=== PATIENT | male | born 1960 | race Caucasian/White ===

== ENCOUNTER 2017-09-17 05:14 | Inpatient (IN) | payer OTHER ==
[~2017-09-17] VITALS: Ht 177.8 cm; Wt 109.7 kg
[2017-09-17] VITALS (14 sets, daily range): BP systolic 101–132; BP diastolic 62–86
[~2017-09-17 05:14] MED LIST: ACTOS30 MG PO; ADVIL,NUPRIN,M200 MG PO; ADVIL200 MG PO; AMBIEN CR12.5 MG PO; ASCORBIC ACID100 MG PO; ASPIR-LOW81 MG PO; CEFDINIR300 MG PO; CEFTIN250 MG PO; CENTRUM ULTRA1 EACH PO; EXALGO16 MG PO; FOLTX TABLET1 EAC1 PO; GABAPENTIN400 MG PO; GLUCOPHAGE1000 MG PO; HUMALOG100 UNIT/1 SC; IBUPROFEN800 MG PO; LANTUS 10100 UNITS/ SC; LEVAQUIN750 MG PO; LIPITOR10 MG PO; LIPITOR40 MG PO; LISINOPRIL-HCT1 EAC3 PO; LOPID600 MG PO; METOPROLOL TART50 MG PO; NEURONTIN800 MG PO; ONE DAILY TABL1 EAC1 PO; OSTEO BI-FLEX1 EAC1 PO; PERCOCET 10/1 TABLET PO; PLAVIX75 MG PO; PREDNISONE10 MG PO; PRILOSEC20 MG PO; PROAIR HFA8.5 GM IH; PROTONIX40 MG PO; PROVENTIL HFA6.7 GM IH; PROZAC20 MG PO; PROZAC40 MG PO; ROBITUSSIN AC,T10 ML PO; TOPAMAX100 MG PO; TOPROL XL50 MG PO; ZOLPIDEM TART12.5 MG PO
[2017-09-17 06:21] LABS: HEMATOCRIT 32.9 % (38.0-50.0); HEMOGLOBIN 11.6 G/DL (12.5-16.6); MCH 32.1 PG (29.0-34.0); MCHC 35.3 G/DL (30.0-36.0); MCV 91.1 FL (86-99); PLATELET COUNT 131 K/uL (156-360); RBC DIS.WIDTH-SD 43.1 % (39-53); RED BLOOD COUNT 3.61 M/uL (4.00-5.50); WHITE BLOOD COUNT 10.1 K/uL (4.1-10.2)
[2017-09-17 06:32] LABS: CHLORIDE 97 mEq/L (99-109); POTASSIUM 4.9 mEq/L (3.7-5.4); SODIUM 131 mEq/L (136-147)
[2017-09-17 06:34] LABS: GLUCOSE 101 mg/dL (70-99)
[2017-09-17 06:38] LABS: CREATININE 2.1 mg/dL (0.6-1.3); GFR ESTIMATE (CALCULATED) 35 mL/min/ (58.99-99999); UREA NITROGEN (BUN) 26 mg/dL (9-23)
[2017-09-17 07:49] LABS: TROP-I INTERPRETATION NEGATIVE; TROPONIN-I 0.01 ng/mL (0.0-0.30)
[2017-09-17 08:01] LABS: BASE EXCESS -8.4 mEq/L (-3 to +3); BICARBONATE 17.9 mEq/L (22-26); CARBOXY HGB 2.2 % (0-5); METHEMOGLOBIN 0.2 % (0-1.5)
[2017-09-17 08:02] LABS: COMMENTS - BLOOD GASES +C; DEVICE HHFNC; O2 FLOW 15 L/MIN; PCO2 39 mm Hg (35-45); PO2 62 mm Hg (80-100); SITE LR +A; TOTAL RESP RATE 18 resp/min
[2017-09-17 08:03] LABS: pH 7.27 (7.35-7.45)
[2017-09-17] MEDS ORDERED: TIZANIDINE HCL4 MG PO (11:29)
[2017-09-17] MEDS ORDERED: VICTOZA0.6 MG/0.1 SC (11:29)
[2017-09-17] MEDS ORDERED: FENOFIBRATE160 M1 PO (11:30)
[2017-09-17] MEDS ORDERED: FISH OIL 1,0001 EAC7 PO (11:30)
[2017-09-17] MEDS ORDERED: VITAMIN B122500 MCG PO (11:30)
[2017-09-17] MEDS ORDERED: ALEVE220 M2 PO (11:31)
[2017-09-17] MEDS ORDERED: THERAGRAN1 TABLET PO (12:18)
[2017-09-17] MEDS ORDERED: CLARITIN10 M3 PO (12:18)
[2017-09-18] VITALS (22 sets, daily range): BP systolic 83–185; BP diastolic 46–142
[2017-09-18 00:58] LABS: APPEARANCE CLEAR ((CLEAR)); BILIRUBIN NEGATIVE; BLOOD NEGATIVE; COLOR YELLOW ((YELLOW)); GLUCOSE (STRIP) NEGATIVE; KETONES NEGATIVE; LEUKOCYTES NEGATIVE; NITRITE NEGATIVE; PROTEIN (STRIP) NEGATIVE; SPECIFIC GRAVITY 1.006 (1.000-1.030); UCUL ADDED? NO; UROBILINOGEN 0.2 MG/DL (0.2-1.0)
[2017-09-18 06:07] LABS: BASOPHIL (%) 0.6 % (0-1); BASOPHIL COUNT 0.1 K/uL (0-0.1); EOSINOPHIL (%) 1.4 % (0-5); EOSINOPHIL COUNT 0.1 K/uL (0-0.3); HEMATOCRIT 31.6 % (38.0-50.0); HEMOGLOBIN 10.7 G/DL (12.5-16.6); IMMATURE GRANULOCYTE (%) 3.5 % (0.0-0.7); LYMPHOCYTE (%) 6.6 % (15-42); LYMPHOCYTE COUNT 0.6 K/uL (1.0-2.8); MCH 31.7 PG (29.0-34.0); MCHC 33.9 G/DL (30.0-36.0); MCV 93.5 FL (86-99); MONOCYTE (%) 9.1 % (3-12); MONOCYTE COUNT 0.8 K/uL (0-0.8); NEUTROPHIL (%) 78.8 % (45-76); NEUTROPHIL COUNT 6.6 K/uL (1.8-6.4); PLATELET COUNT 168 K/uL (156-360); RBC DIS.WIDTH-CV 13.2 % (11.8-14.6); RBC DIS.WIDTH-SD 45.1 % (39-53); RED BLOOD COUNT 3.38 M/uL (4.00-5.50); WHITE BLOOD COUNT 8.4 K/uL (4.1-10.2)
[2017-09-18 06:42] LABS: CHLORIDE 110 MEQ/L (99-109); GFR ESTIMATE (CALCULATED) 56 mL/min/ (58.99-99999); POTASSIUM 4.3 MEQ/L (3.7-5.4); SODIUM 137 MEQ/L (136-147); UREA NITROGEN (BUN) 19 mg/dL (9-23)
[2017-09-18 06:43] LABS: CREATININE 1.4 MG/DL (0.6-1.3); GLUCOSE 204 mg/dL (70-99)
[2017-09-18 12:55] LABS: BASE EXCESS -7.6 mEq/L (-3 to +3); BICARBONATE 17.4 mEq/L (22-26); CARBOXY HGB 0.7 % (0-5); COMMENTS - BLOOD GASES A+C+; DEVICE HHFNC; FI02 100 %; METHEMOGLOBIN 1.1 % (0-1.5); O2 FLOW 50 L/MIN; PCO2 33 mm Hg (35-45); PO2 59 mm Hg (80-100); SITE RR; TOTAL RESP RATE 23 resp/min; pH 7.33 (7.35-7.45)
[2017-09-19] VITALS (16 sets, daily range): BP systolic 87–131; BP diastolic 45–88
[2017-09-19 06:01] LABS: HEMATOCRIT 33.3 % (38.0-50.0); HEMOGLOBIN 11.2 G/DL (12.5-16.6); MCH 31.6 PG (29.0-34.0); MCHC 33.6 G/DL (30.0-36.0); MCV 94.1 FL (86-99); NRBC (%) 0.2 /100 WBC (0-0); PLATELET COUNT 191 K/uL (156-360); RBC DIS.WIDTH-CV 13.3 % (11.8-14.6); RBC DIS.WIDTH-SD 45.6 % (39-53); RED BLOOD COUNT 3.54 M/uL (4.00-5.50); WHITE BLOOD COUNT 9.7 K/uL (4.1-10.2)
[2017-09-19 06:26] LABS: CHLORIDE 106 MEQ/L (99-109); CREATININE 1.6 MG/DL (0.6-1.3); GFR ESTIMATE (CALCULATED) 48 mL/min/ (58.99-99999); GLUCOSE 108 mg/dL (70-99); POTASSIUM 3.8 MEQ/L (3.7-5.4); SODIUM 136 MEQ/L (136-147); UREA NITROGEN (BUN) 16 mg/dL (9-23)
[2017-09-19 06:31] LABS: ABS NEUTROPHIL COUNT 7.9; ANISOCYTOSIS 1+; BAND NEUTROPHILS 7.9 % (0-8.0); BASOPHILS 0.9 %; EOSINOPHIL ABS CT 0.3; EOSINOPHILS 2.6 % (0-5.0); MICROCYTOSIS 1+; MONOCYTES 5.3 % (0-9.0); MYELOCYTES 2.6 %; PLAT.SUFFICIENCY ADEQUATE; POLYCHROMASIA 1+; SEG.NEUTROPHILS 73.7 % (46.0-76.0)
[2017-09-19 09:22] LABS: BASE EXCESS -9.7 mEq/L (-3 to +3); BICARBONATE 16.6 mEq/L (22-26); CARBOXY HGB 0.1 % (0-5); COMMENTS - BLOOD GASES C+; DEVICE VENTILATOR; FI02 100 %; INSPIRATION TIME 1.2 seconds; MECHANICAL RATE 24 resp/min; METHEMOGLOBIN 0.9 % (0-1.5); MODE AC+; PCO2 37 mm Hg (35-45); PO2 127 mm Hg (80-100); SITE A LINE; TOTAL RESP RATE 27 resp/min; pH 7.26 (7.35-7.45)
[2017-09-19 09:23] LABS: PEEP 12 CM/H20; TIDAL VOLUME 600 ML
[2017-09-19 13:03] LABS: ALKALINE PHOSPHATASE 66 IU/L (3-129); ALT (GPT) 32 IU/L (3-49); DIRECT BILIRUBIN 0.6 mg/dL (0.0-0.3); MAGNESIUM 1.7 mg/dl (1.3-2.7); PHOSPHORUS 2.9 mg/dL (2.5-4.9); TRIGLYCERIDES 278 MG/DL (Normal: <150)
[2017-09-19 13:07] LABS: AST (GOT) 42 IU/L (2-34); TOTAL BILIRUBIN 1.1 MG/DL (0.0-1.0); TOTAL PROTEIN 5.5 G/DL (6.4-8.3)
[2017-09-20 05:41] LABS: HEMATOCRIT 27.3 % (38.0-50.0); MCH 30.9 PG (29.0-34.0); MCV 93.8 FL (86-99); PLATELET COUNT 186 K/uL (156-360); RBC DIS.WIDTH-CV 13.5 % (11.8-14.6); RBC DIS.WIDTH-SD 45.9 % (39-53); RED BLOOD COUNT 2.91 M/uL (4.00-5.50); WHITE BLOOD COUNT 8.9 K/uL (4.1-10.2)
[2017-09-20 06:14] LABS: ALBUMIN 2.7 G/DL (3.2-4.8); ALKALINE PHOSPHATASE 60 IU/L (3-129); ALT (GPT) 34 IU/L (3-49); AST (GOT) 37 IU/L (2-34); CHLORIDE 108 MEQ/L (99-109); CREATININE 1.5 MG/DL (0.6-1.3); GFR ESTIMATE (CALCULATED) 52 mL/min/ (58.99-99999); GLUCOSE 149 mg/dL (70-99); POTASSIUM 3.6 MEQ/L (3.7-5.4); SODIUM 135 MEQ/L (136-147); TOTAL PROTEIN 5.7 G/DL (6.4-8.3); UREA NITROGEN (BUN) 27 mg/dL (9-23)
[2017-09-20 06:20] LABS: ABS NEUTROPHIL COUNT 7.7; ANISOCYTOSIS 1+; BAND NEUTROPHILS 0.9 % (0-8.0); BASOPHILS 2.7 %; EOSINOPHIL ABS CT 0.1; EOSINOPHILS 0.9 % (0-5.0); LYMPHOCYTES 1.8 % (15.0-45.0); MICROCYTOSIS 1+; MONOCYTES 8.1 % (0-9.0); PLAT.SUFFICIENCY ADEQUATE; SEG.NEUTROPHILS 85.6 % (46.0-76.0)
[2017-09-20 07:00] VITALS: BP 108/66
[2017-09-20 08:00] VITALS: BP 127/107
[2017-09-20 20:56] LABS: BASE EXCESS -7.4 mEq/L (-3 to +3); BICARBONATE 19.3 mEq/L (22-26); CARBOXY HGB 0.6 % (0-5)
[2017-09-20 20:57] LABS: COMMENTS - BLOOD GASES C+; DEVICE VENT; FI02 100 %; MECHANICAL RATE 24 resp/min; MODE ACVC+; PCO2 43 mm Hg (35-45); PO2 445 mm Hg (80-100); SITE ALINE; TOTAL RESP RATE 24 resp/min; pH 7.26 (7.35-7.45)
[2017-09-20 20:58] LABS: INSPIRATION TIME 0.9 seconds; PEEP 18 CM/H20; TIDAL VOLUME 600 ML
[2017-09-21] VITALS (7 sets, daily range): BP systolic 72–125; BP diastolic 41–66
[2017-09-21 06:37] LABS: CHLORIDE 108 MEQ/L (99-109); CREATININE 1.8 MG/DL (0.6-1.3); GFR ESTIMATE (CALCULATED) 42 mL/min/ (58.99-99999); POTASSIUM 3.8 MEQ/L (3.7-5.4); SODIUM 137 MEQ/L (136-147)
[2017-09-21 06:39] LABS: GLUCOSE 106 mg/dL (70-99); MAGNESIUM 2.2 mg/dl (1.3-2.7); UREA NITROGEN (BUN) 44 mg/dL (9-23)
[2017-09-21 07:03] LABS: HEMATOCRIT 27.4 % (38.0-50.0); HEMOGLOBIN 8.9 G/DL (12.5-16.6); MCH 30.8 PG (29.0-34.0); MCHC 32.5 G/DL (30.0-36.0); MCV 94.8 FL (86-99); PLATELET COUNT 193 K/uL (156-360); RBC DIS.WIDTH-CV 13.6 % (11.8-14.6); RBC DIS.WIDTH-SD 47.6 % (39-53); RED BLOOD COUNT 2.89 M/uL (4.00-5.50); WHITE BLOOD COUNT 10.6 K/uL (4.1-10.2)
[2017-09-21 08:46] LABS: BASE EXCESS -6.8 mEq/L (-3 to +3); BICARBONATE 19.7 mEq/L (22-26); CARBOXY HGB 0.3 % (0-5); COMMENTS - BLOOD GASES C+ANA; METHEMOGLOBIN 1.2 % (0-1.5); PCO2 43 mm Hg (35-45); PO2 77 mm Hg (80-100); SITE ALINE; pH 7.27 (7.35-7.45)
[2017-09-21 08:47] LABS: DEVICE 840 PB; FI02 85 %; INSPIRATION TIME 0.8 seconds; MECHANICAL RATE 24 resp/min; MODE ACVC+; PEEP 15 CM/H20; TIDAL VOLUME 600 ML; TOTAL RESP RATE 29 resp/min
[2017-09-22] VITALS (9 sets, daily range): BP systolic 108–174; BP diastolic 62–92
[2017-09-22 05:44] LABS: HEMATOCRIT 27.9 % (38.0-50.0); HEMOGLOBIN 8.9 G/DL (12.5-16.6); MCHC 31.9 G/DL (30.0-36.0); MCV 97.2 FL (86-99); PLATELET COUNT 205 K/uL (156-360); RBC DIS.WIDTH-CV 13.9 % (11.8-14.6); RED BLOOD COUNT 2.87 M/uL (4.00-5.50)
[2017-09-22 05:57] LABS: BASE EXCESS -8.1 mEq/L (-3 to +3); BICARBONATE 19.2 mEq/L (22-26); CARBOXY HGB 0.3 % (0-5); METHEMOGLOBIN 1.1 % (0-1.5); PCO2 47 mm Hg (35-45); PO2 90 mm Hg (80-100); SITE LR ALINE; pH 7.22 (7.35-7.45)
[2017-09-22 05:58] LABS: COMMENTS - BLOOD GASES C; DEVICE VENT; FI02 50 %; INSPIRATION TIME 0.75 seconds; MECHANICAL RATE 24 resp/min; MODE BILEVEL; PRES. SUPPORT 12 CM/H2O; PRESSURE CONTROL VENTILATION 31 CM H20; TOTAL RESP RATE 34 resp/min
[2017-09-22 05:59] LABS: PEEP 16 CM/H20
[2017-09-22 06:28] LABS: BASE EXCESS -9.2 mEq/L (-3 to +3); BICARBONATE 18.4 mEq/L (22-26); CARBOXY HGB 0.2 % (0-5); METHEMOGLOBIN 1.1 % (0-1.5); PCO2 47 mm Hg (35-45); PO2 106 mm Hg (80-100)
[2017-09-22 06:29] LABS: CHLORIDE 108 MEQ/L (99-109); CREATININE 2.3 MG/DL (0.6-1.3); GFR ESTIMATE (CALCULATED) 32 mL/min/ (58.99-99999); GLUCOSE 147 mg/dL (70-99); POTASSIUM 4.1 MEQ/L (3.7-5.4); SODIUM 138 MEQ/L (136-147); UREA NITROGEN (BUN) 67 mg/dL (9-23)
[2017-09-22 06:29] LABS: COMMENTS - BLOOD GASES C+; DEVICE VENT; FI02 50 %; INSPIRATION TIME 0.8 seconds; MECHANICAL RATE 24 resp/min; MODE AC+; PEEP 16 CM/H20; SITE LR ALINE; TIDAL VOLUME 600 ML; TOTAL RESP RATE 24 resp/min
[2017-09-22 13:21] LABS: UR CREATININE CONCENTRATION 95.9 MG/DL
[2017-09-22 18:44] LABS: CHLORIDE 106 MEQ/L (99-109); CREATININE 1.9 MG/DL (0.6-1.3); GFR ESTIMATE (CALCULATED) 39 mL/min/ (58.99-99999); GLUCOSE 303 mg/dL (70-99); IRON 28 MCG/DL (35-150); POTASSIUM 3.5 MEQ/L (3.7-5.4); SODIUM 137 MEQ/L (136-147); TRANSFERRIN SATUR. 18 % (20-55); UREA NITROGEN (BUN) 62 mg/dL (9-23)
[2017-09-22 21:31] LABS: APPEARANCE SL.HAZY ((CLEAR)); BILIRUBIN NEGATIVE; BLOOD SMALL; COLOR YELLOW ((YELLOW)); GLUCOSE (STRIP) 50; KETONES NEGATIVE; LEUKOCYTES NEGATIVE; NITRITE NEGATIVE; PROTEIN (STRIP) NEGATIVE; SPECIFIC GRAVITY 1.016 (1.000-1.030)
[2017-09-22 21:36] LABS: BACTERIA NONE SEEN /HPF; EPITHELIAL CELLS RARE /HPF; MUCUS TRACE /LPF; RED BLOOD CELLS 20-30 /HPF (0-5); WHITE BLOOD CELLS 0-5 /HPF (0-5)
[2017-09-22 22:40] LABS: EOSINOPHILS,URINE NONE SEEN
[2017-09-23] VITALS (17 sets, daily range): BP systolic 122–166; BP diastolic 46–89
[2017-09-23 07:46] LABS: ALBUMIN 2.4 G/DL (3.2-4.8); CHLORIDE 109 MEQ/L (99-109); CREATININE 1.7 MG/DL (0.6-1.3); GFR ESTIMATE (CALCULATED) 45 mL/min/ (58.99-99999); GLUCOSE 359 mg/dL (70-99); PHOSPHORUS 2.9 mg/dL (2.5-4.9); POTASSIUM 3.4 MEQ/L (3.7-5.4); SODIUM 142 MEQ/L (136-147); UREA NITROGEN (BUN) 65 mg/dL (9-23)
[2017-09-23 07:47] LABS: MAGNESIUM 2.6 mg/dl (1.3-2.7)
[2017-09-23 08:00] LABS: BASE EXCESS -1.5 mEq/L (-3 to +3); BICARBONATE 23.7 mEq/L (22-26); CARBOXY HGB 0.1 % (0-5); COMMENTS - BLOOD GASES A+; METHEMOGLOBIN 0.8 % (0-1.5); PCO2 41 mm Hg (35-45); PO2 150 mm Hg (80-100); SITE ALINE; pH 7.37 (7.35-7.45)
[2017-09-23 08:00] LABS: HEMATOCRIT 27.8 % (38.0-50.0); HEMOGLOBIN 9.2 G/DL (12.5-16.6); MCH 31.7 PG (29.0-34.0); MCHC 33.1 G/DL (30.0-36.0); MCV 95.9 FL (86-99); PLATELET COUNT 211 K/uL (156-360); RBC DIS.WIDTH-CV 13.9 % (11.8-14.6); RBC DIS.WIDTH-SD 49.3 % (39-53); WHITE BLOOD COUNT 8.2 K/uL (4.1-10.2)
[2017-09-23 08:01] LABS: DEVICE 840VENT; FI02 40 %; INSPIRATION TIME 0.8 seconds; MECHANICAL RATE 24 resp/min; MODE BILEVEL; PEEP 16 CM/H20; PRES. SUPPORT 12 CM/H2O; PRESSURE CONTROL VENTILATION 34 CM H20; TOTAL RESP RATE 24 resp/min
[2017-09-23 08:27] LABS: ABS NEUTROPHIL COUNT 7.1; ANISOCYTOSIS 1+; BAND NEUTROPHILS 3.7 % (0-8.0); EOSINOPHIL ABS CT 0.2; EOSINOPHILS 2.7 % (0-5.0); LYMPHOCYTES 0.9 % (15.0-45.0); MACROCYTES 1+; METAMYELOCYTES 1.8 %; MONOCYTES 5.5 % (0-9.0); MYELOCYTES 2.7 %; PLAT.SUFFICIENCY ADEQUATE; SEG.NEUTROPHILS 82.7 % (46.0-76.0)
[2017-09-24 05:50] LABS: HEMATOCRIT 27.8 % (38.0-50.0); HEMOGLOBIN 9.2 G/DL (12.5-16.6); MCH 31.8 PG (29.0-34.0); MCHC 33.1 G/DL (30.0-36.0); MCV 96.2 FL (86-99); PLATELET COUNT 220 K/uL (156-360); RBC DIS.WIDTH-SD 49.9 % (39-53); RED BLOOD COUNT 2.89 M/uL (4.00-5.50); WHITE BLOOD COUNT 8.1 K/uL (4.1-10.2)
[2017-09-24 06:18] LABS: ALBUMIN 2.6 G/DL (3.2-4.8); CHLORIDE 118 MEQ/L (99-109); CREATININE 1.7 MG/DL (0.6-1.3); GFR ESTIMATE (CALCULATED) 45 mL/min/ (58.99-99999); GLUCOSE 300 mg/dL (70-99); MAGNESIUM 2.5 mg/dl (1.3-2.7); PHOSPHORUS 2.1 mg/dL (2.5-4.9); POTASSIUM 4.1 MEQ/L (3.7-5.4); SODIUM 149 MEQ/L (136-147); UREA NITROGEN (BUN) 62 mg/dL (9-23)
[2017-09-24 06:22] LABS: ABS NEUTROPHIL COUNT 6.7; ATYPICAL LYMPHOCYTE 0.9 %; BASOPHILS 0.9 %; EOSINOPHIL ABS CT 0.1; EOSINOPHILS 0.9 % (0-5.0); LYMPHOCYTES 5.5 % (15.0-45.0); MONOCYTES 5.5 % (0-9.0); MYELOCYTES 3.6 %; PLAT.SUFFICIENCY ADEQUATE; SEG.NEUTROPHILS 82.7 % (46.0-76.0)
[2017-09-24 16:00] VITALS: BP 147/72
[2017-09-24 16:52] LABS: BASE EXCESS -0.7 mEq/L (-3 to +3); BICARBONATE 23.2 mEq/L (22-26); CARBOXY HGB 0.3 % (0-5); METHEMOGLOBIN 0.8 % (0-1.5); pH 7.43 (7.35-7.45)
[2017-09-24 16:53] LABS: COMMENTS - BLOOD GASES C+; DEVICE 980; FI02 40 %; MECHANICAL RATE 24 resp/min; MODE BILEVEL; PCO2 35 mm Hg (35-45); PO2 83 mm Hg (80-100); PRES. SUPPORT 15 CM/H2O; SITE LEFTALINE
[2017-09-25] VITALS (13 sets, daily range): BP systolic 121–210; BP diastolic 74–137
[2017-09-25 05:35] LABS: ALBUMIN 2.8 g/dL (3.2-4.8); CHLORIDE 117 mEq/L (99-109); POTASSIUM 4.6 mEq/L (3.7-5.4); SODIUM 145 mEq/L (136-147)
[2017-09-25 05:36] LABS: MAGNESIUM 2.2 mg/dL (1.3-2.7)
[2017-09-25 05:38] LABS: GLUCOSE 330 mg/dL (70-99)
[2017-09-25 05:41] LABS: CREATININE 1.7 mg/dL (0.6-1.3); GFR ESTIMATE (CALCULATED) 45 mL/min/ (58.99-99999); PHOSPHORUS 3.3 mg/dL (2.5-4.9)
[2017-09-25 05:42] LABS: UREA NITROGEN (BUN) 61 mg/dL (9-23)
[2017-09-25 05:58] LABS: HEMATOCRIT 30.1 % (38.0-50.0); HEMOGLOBIN 9.6 G/DL (12.5-16.6); MCH 31.5 PG (29.0-34.0); MCHC 31.9 G/DL (30.0-36.0); MCV 98.7 FL (86-99); PLATELET COUNT 242 K/uL (156-360); RBC DIS.WIDTH-CV 14.2 % (11.8-14.6); RBC DIS.WIDTH-SD 51.6 % (39-53); RED BLOOD COUNT 3.05 M/uL (4.00-5.50); WHITE BLOOD COUNT 8.9 K/uL (4.1-10.2)
[2017-09-25 06:40] LABS: TRIGLYCERIDES 608 MG/DL (Normal: <150)
[2017-09-25 06:59] LABS: ANISOCYTOSIS 1+; BAND NEUTROPHILS 2.8 % (0-8.0); EOSINOPHIL ABS CT 0.2; EOSINOPHILS 2.8 % (0-5.0); LYMPHOCYTES 3.8 % (15.0-45.0); MACROCYTES 1+; METAMYELOCYTES 3.8 %; MICROCYTOSIS 1+; MONOCYTES 4.7 % (0-9.0); MYELOCYTES 5.7 %; PLAT.SUFFICIENCY ADEQUATE; POLYCHROMASIA 1+; SEG.NEUTROPHILS 76.4 % (46.0-76.0)
[2017-09-25 07:14] LABS: APPEARANCE CLEAR ((CLEAR)); BILIRUBIN NEGATIVE; BLOOD NEGATIVE; COLOR YELLOW ((YELLOW)); GLUCOSE (STRIP) 50; KETONES NEGATIVE; LEUKOCYTES NEGATIVE; NITRITE NEGATIVE; PROTEIN (STRIP) NEGATIVE; SPECIFIC GRAVITY 1.025 (1.000-1.030); UROBILINOGEN 0.2 MG/DL (0.2-1.0)
[2017-09-25 12:29] LABS: BASE EXCESS 0.1 mEq/L (-3 to +3); BICARBONATE 24.7 mEq/L (22-26); CARBOXY HGB 0 % (0-5); METHEMOGLOBIN 1.1 % (0-1.5); PCO2 39 mm Hg (35-45); PO2 122 mm Hg (80-100); pH 7.41 (7.35-7.45)
[2017-09-25 12:30] LABS: DEVICE 840 PB; FI02 60 %; INSPIRATION TIME 0.8 seconds; MECHANICAL RATE 24 resp/min; MODE AC VC+; PEEP 10 CM/H20; SITE A-LINE; TIDAL VOLUME 600 ML; TOTAL RESP RATE 25 resp/min
[2017-09-26] VITALS (17 sets, daily range): BP systolic 115–183; BP diastolic 65–111
[2017-09-26 06:41] LABS: CHLORIDE 116 MEQ/L (99-109); CREATININE 1.4 MG/DL (0.6-1.3); GFR ESTIMATE (CALCULATED) 56 mL/min/ (58.99-99999); GLUCOSE 296 mg/dL (70-99); POTASSIUM 4.4 MEQ/L (3.7-5.4); SODIUM 147 MEQ/L (136-147); UREA NITROGEN (BUN) 54 mg/dL (9-23)
[2017-09-27] VITALS (24 sets, daily range): BP systolic 0–191; BP diastolic 0–117
[2017-09-27 05:19] LABS: CHLORIDE 122 mEq/L (99-109); SODIUM 149 mEq/L (136-147)
[2017-09-27 05:24] LABS: CREATININE 1.2 mg/dL (0.6-1.3); GFR ESTIMATE (CALCULATED) > 59 mL/min/ (58.99-99999)
[2017-09-27 05:25] LABS: UREA NITROGEN (BUN) 46 mg/dL (9-23)
[2017-09-27 05:32] LABS: GLUCOSE 132 mg/dL (70-99); POTASSIUM 3.4 mEq/L (3.7-5.4)
[2017-09-27 12:22] LABS: C DIFF TOXIN NEGATIVE (NEGATIVE)
[2017-09-28] VITALS (24 sets, daily range): BP systolic 0–186; BP diastolic 0–109
[2017-09-28 05:46] LABS: BASOPHIL (%) 0.3 % (0-1); EOSINOPHIL (%) 0.8 % (0-5); EOSINOPHIL COUNT 0.1 K/uL (0-0.3); HEMATOCRIT 31.5 % (38.0-50.0); HEMOGLOBIN 10.1 G/DL (12.5-16.6); IMMATURE GRANULOCYTE (%) 1.9 % (0.0-0.7); LYMPHOCYTE (%) 9.2 % (15-42); MCH 31.2 PG (29.0-34.0); MCHC 32.1 G/DL (30.0-36.0); MCV 97.2 FL (86-99); MONOCYTE (%) 6.2 % (3-12); MONOCYTE COUNT 0.7 K/uL (0-0.8); NEUTROPHIL (%) 81.6 % (45-76); RBC DIS.WIDTH-CV 13.2 % (11.8-14.6); RBC DIS.WIDTH-SD 46.9 % (39-53); RED BLOOD COUNT 3.24 M/uL (4.00-5.50)
[2017-09-28 05:47] LABS: PLATELET COUNT 348 K/uL (156-360)
[2017-09-28 06:00] LABS: ALBUMIN 2.9 G/DL (3.2-4.8); ALKALINE PHOSPHATASE 49 IU/L (3-129); ALT (GPT) 55 IU/L (3-49); AST (GOT) 51 IU/L (2-34); CHLORIDE 118 MEQ/L (99-109); CREATININE 1.3 MG/DL (0.6-1.3); GFR ESTIMATE (CALCULATED) > 59 mL/min/ (58.99-99999); MAGNESIUM 2.5 mg/dl (1.3-2.7); PHOSPHORUS 2.5 mg/dL (2.5-4.9); POTASSIUM 3.9 MEQ/L (3.7-5.4); SODIUM 149 MEQ/L (136-147); TOTAL BILIRUBIN 0.7 MG/DL (0.0-1.0); TOTAL PROTEIN 5.7 G/DL (6.4-8.3); UREA NITROGEN (BUN) 46 mg/dL (9-23)
[2017-09-28 06:04] LABS: GLUCOSE 282 mg/dL (70-99)
[2017-09-28 09:27] LABS: BASE EXCESS -1.2 mEq/L (-3 to +3); CARBOXY HGB 0.5 % (0-5); COMMENTS - BLOOD GASES +C; DEVICE HHFNC; FI02 40 %; METHEMOGLOBIN 1.1 % (0-1.5); O2 FLOW 30 L/MIN; PCO2 31 mm Hg (35-45); PO2 63 mm Hg (80-100); SITE RR +A; TOTAL RESP RATE 38 resp/min; pH 7.46 (7.35-7.45)
[2017-09-29] VITALS (18 sets, daily range): BP systolic 106–165; BP diastolic 48–109
[2017-09-29 06:21] LABS: BASOPHIL (%) 0.5 % (0-1); EOSINOPHIL (%) 2.6 % (0-5); EOSINOPHIL COUNT 0.2 K/uL (0-0.3); HEMATOCRIT 29.4 % (38.0-50.0); HEMOGLOBIN 9.5 G/DL (12.5-16.6); IMMATURE GRANULOCYTE (%) 2.3 % (0.0-0.7); MCH 31.3 PG (29.0-34.0); MCHC 32.3 G/DL (30.0-36.0); MCV 96.7 FL (86-99); MONOCYTE (%) 6.9 % (3-12); MONOCYTE COUNT 0.4 K/uL (0-0.8); NEUTROPHIL (%) 71.7 % (45-76); NEUTROPHIL COUNT 4.4 K/uL (1.8-6.4); PLATELET COUNT 337 K/uL (156-360); RBC DIS.WIDTH-CV 13.1 % (11.8-14.6); RBC DIS.WIDTH-SD 46.2 % (39-53); RED BLOOD COUNT 3.04 M/uL (4.00-5.50); WHITE BLOOD COUNT 6.1 K/uL (4.1-10.2)
[2017-09-29 06:44] LABS: ALBUMIN 2.8 G/DL (3.2-4.8); ALKALINE PHOSPHATASE 45 IU/L (3-129); ALT (GPT) 47 IU/L (3-49); AST (GOT) 30 IU/L (2-34); CHLORIDE 122 MEQ/L (99-109); GFR ESTIMATE (CALCULATED) > 59 mL/min/ (58.99-99999); GLUCOSE 230 mg/dL (70-99); MAGNESIUM 2.6 mg/dl (1.3-2.7); PHOSPHORUS 3.2 mg/dL (2.5-4.9); POTASSIUM 3.8 MEQ/L (3.7-5.4); SODIUM 152 MEQ/L (136-147); TOTAL BILIRUBIN 0.6 MG/DL (0.0-1.0); TOTAL PROTEIN 5.8 G/DL (6.4-8.3); UREA NITROGEN (BUN) 38 mg/dL (9-23)
[2017-09-30 03:44] VITALS: BP 152/79
[2017-09-30 06:49] LABS: HEMATOCRIT 32.9 % (38.0-50.0); HEMOGLOBIN 10.3 G/DL (12.5-16.6); MCH 30.7 PG (29.0-34.0); MCHC 31.3 G/DL (30.0-36.0); MCV 97.9 FL (86-99); PLATELET COUNT 436 K/uL (156-360); RBC DIS.WIDTH-CV 13.2 % (11.8-14.6); RBC DIS.WIDTH-SD 47.1 % (39-53); RED BLOOD COUNT 3.36 M/uL (4.00-5.50); WHITE BLOOD COUNT 7.3 K/uL (4.1-10.2)
[2017-09-30 07:23] LABS: ALBUMIN 3.1 G/DL (3.2-4.8); ALKALINE PHOSPHATASE 58 IU/L (3-129); ALT (GPT) 80 IU/L (3-49); CHLORIDE 120 MEQ/L (99-109); CREATININE 1.1 MG/DL (0.6-1.3); GFR ESTIMATE (CALCULATED) > 59 mL/min/ (58.99-99999); GLUCOSE 165 mg/dL (70-99); POTASSIUM 3.3 MEQ/L (3.7-5.4); SODIUM 152 MEQ/L (136-147); TOTAL PROTEIN 5.8 G/DL (6.4-8.3); UREA NITROGEN (BUN) 27 mg/dL (9-23)
[2017-09-30 07:24] LABS: AST (GOT) 65 IU/L (2-34); TOTAL BILIRUBIN 0.8 MG/DL (0.0-1.0)
[2017-09-30 08:31] VITALS: BP 164/79
[2017-09-30 12:33] VITALS: BP 160/76
[2017-09-30 16:23] VITALS: BP 154/67
[2017-10-01 00:12] VITALS: BP 148/70
[2017-10-01 04:03] VITALS: BP 140/65
[2017-10-01 06:30] VITALS: BP 157/73
[2017-10-01 07:02] LABS: BASOPHIL (%) 0.3 % (0-1); EOSINOPHIL (%) 1.7 % (0-5); EOSINOPHIL COUNT 0.2 K/uL (0-0.3); HEMATOCRIT 29.3 % (38.0-50.0); HEMOGLOBIN 9.3 G/DL (12.5-16.6); IMMATURE GRANULOCYTE (%) 1.2 % (0.0-0.7); LYMPHOCYTE (%) 10.4 % (15-42); LYMPHOCYTE COUNT 1.2 K/uL (1.0-2.8); MCH 30.7 PG (29.0-34.0); MCHC 31.7 G/DL (30.0-36.0); MCV 96.7 FL (86-99); MONOCYTE (%) 5.6 % (3-12); MONOCYTE COUNT 0.7 K/uL (0-0.8); NEUTROPHIL (%) 80.8 % (45-76); NEUTROPHIL COUNT 9.4 K/uL (1.8-6.4); PLATELET COUNT 467 K/uL (156-360); RBC DIS.WIDTH-CV 13.3 % (11.8-14.6); RBC DIS.WIDTH-SD 46.7 % (39-53); RED BLOOD COUNT 3.03 M/uL (4.00-5.50); WHITE BLOOD COUNT 11.7 K/uL (4.1-10.2)
[2017-10-01 07:34] LABS: CHLORIDE 119 MEQ/L (99-109); GFR ESTIMATE (CALCULATED) > 59 mL/min/ (58.99-99999); GLUCOSE 137 mg/dL (70-99); POTASSIUM 3.5 MEQ/L (3.7-5.4); SODIUM 149 MEQ/L (136-147); UREA NITROGEN (BUN) 19 mg/dL (9-23)
[2017-10-01 15:53] VITALS: BP 151/89
[2017-10-01 19:53] VITALS: BP 148/78
[2017-10-02 00:40] VITALS: BP 178/87
[2017-10-02 04:28] VITALS: BP 157/82
[2017-10-02 05:34] LABS: BASOPHIL (%) 0.5 % (0-1); BASOPHIL COUNT 0.1 K/uL (0-0.1); EOSINOPHIL (%) 1.4 % (0-5); EOSINOPHIL COUNT 0.2 K/uL (0-0.3); HEMATOCRIT 30.6 % (38.0-50.0); HEMOGLOBIN 9.9 G/DL (12.5-16.6); IMMATURE GRANULOCYTE (%) 2.2 % (0.0-0.7); LYMPHOCYTE (%) 8.2 % (15-42); LYMPHOCYTE COUNT 1.2 K/uL (1.0-2.8); MCH 30.6 PG (29.0-34.0); MCHC 32.4 G/DL (30.0-36.0); MCV 94.4 FL (86-99); MONOCYTE COUNT 0.9 K/uL (0-0.8); NEUTROPHIL (%) 81.7 % (45-76); NEUTROPHIL COUNT 11.9 K/uL (1.8-6.4); PLATELET COUNT 538 K/uL (156-360); RBC DIS.WIDTH-CV 13.3 % (11.8-14.6); RBC DIS.WIDTH-SD 45.3 % (39-53); RED BLOOD COUNT 3.24 M/uL (4.00-5.50); WHITE BLOOD COUNT 14.6 K/uL (4.1-10.2)
[2017-10-02 05:55] LABS: ALBUMIN 3.1 G/DL (3.2-4.8); ALKALINE PHOSPHATASE 75 IU/L (3-129); ALT (GPT) 73 IU/L (3-49); AST (GOT) 43 IU/L (2-34); CHLORIDE 116 MEQ/L (99-109); CREATININE 0.9 MG/DL (0.6-1.3); GFR ESTIMATE (CALCULATED) > 59 mL/min/ (58.99-99999); GLUCOSE 182 mg/dL (70-99); POTASSIUM 3.3 MEQ/L (3.7-5.4); SODIUM 145 MEQ/L (136-147); TOTAL BILIRUBIN 0.7 MG/DL (0.0-1.0); TOTAL PROTEIN 5.8 G/DL (6.4-8.3); UREA NITROGEN (BUN) 18 mg/dL (9-23)
[2017-10-02 06:31] LABS: HEMATOCRIT 33.2 % (38.0-50.0); HEMOGLOBIN 11.2 G/DL (12.5-16.6); MCH 31.9 PG (29.0-34.0); MCHC 33.7 G/DL (30.0-36.0); MCV 94.6 FL (86-99); PLATELET COUNT 553 K/uL (156-360); RBC DIS.WIDTH-CV 13.5 % (11.8-14.6); RBC DIS.WIDTH-SD 45.6 % (39-53); RED BLOOD COUNT 3.51 M/uL (4.00-5.50)
[2017-10-02 06:46] LABS: ALBUMIN 3.4 g/dL (3.2-4.8); CHLORIDE 120 mEq/L (99-109); POTASSIUM 3.2 mEq/L (3.7-5.4); SODIUM 147 mEq/L (136-147)
[2017-10-02 06:48] LABS: GLUCOSE 201 mg/dL (70-99); TOTAL PROTEIN 6.2 g/dL (6.4-8.3)
[2017-10-02 06:50] LABS: TOTAL BILIRUBIN 0.6 mg/dL (0.0-1.0)
[2017-10-02 06:51] LABS: PHOSPHORUS 3.3 mg/dL (2.5-4.9)
[2017-10-02 06:52] LABS: ALKALINE PHOSPHATASE 85 IU/L (3-129); CREATININE 0.9 mg/dL (0.6-1.3); GFR ESTIMATE (CALCULATED) > 59 mL/min/ (58.99-99999)
[2017-10-02 06:53] LABS: AST (GOT) 53 IU/L (2-34); DIRECT BILIRUBIN 0.4 mg/dL (0.0-0.3); UREA NITROGEN (BUN) 18 mg/dL (9-23)
[2017-10-02 06:55] LABS: ALT (GPT) 94 IU/L (3-49)
[2017-10-02 15:24] VITALS: BP 139/73
[2017-10-03 02:03] VITALS: BP 134/66
[2017-10-03 07:07] LABS: ALKALINE PHOSPHATASE 91 IU/L (3-129); ALT (GPT) 79 IU/L (3-49); AST (GOT) 52 IU/L (2-34); CHLORIDE 117 MEQ/L (99-109); GFR ESTIMATE (CALCULATED) > 59 mL/min/ (58.99-99999); GLUCOSE 181 mg/dL (70-99); POTASSIUM 3.5 MEQ/L (3.7-5.4); SODIUM 146 MEQ/L (136-147); TOTAL BILIRUBIN 0.7 MG/DL (0.0-1.0); TOTAL PROTEIN 5.6 G/DL (6.4-8.3); UREA NITROGEN (BUN) 16 mg/dL (9-23)
[2017-10-03 07:20] LABS: BASOPHIL (%) 0.4 % (0-1); BASOPHIL COUNT 0.1 K/uL (0-0.1); EOSINOPHIL (%) 1.3 % (0-5); EOSINOPHIL COUNT 0.2 K/uL (0-0.3); HEMATOCRIT 31.8 % (38.0-50.0); HEMOGLOBIN 9.8 G/DL (12.5-16.6); IMMATURE GRANULOCYTE (%) 2.4 % (0.0-0.7); LYMPHOCYTE COUNT 0.8 K/uL (1.0-2.8); MCH 30.8 PG (29.0-34.0); MCHC 30.8 G/DL (30.0-36.0); MONOCYTE (%) 5.7 % (3-12); MONOCYTE COUNT 0.7 K/uL (0-0.8); NEUTROPHIL (%) 83.2 % (45-76); NEUTROPHIL COUNT 9.9 K/uL (1.8-6.4); RBC DIS.WIDTH-CV 13.8 % (11.8-14.6); RBC DIS.WIDTH-SD 48.6 % (39-53); RED BLOOD COUNT 3.18 M/uL (4.00-5.50); WHITE BLOOD COUNT 11.9 K/uL (4.1-10.2)
[2017-10-03 07:46] LABS: HEMATOLOGY COMMENT 1 SMEAR COMPATIBLE; PLAT.SUFFICIENCY ADEQUATE
[2017-10-03 07:54] LABS: PLATELET COUNT 358 K/uL (156-360)
[2017-10-03 08:49] VITALS: BP 159/78
[2017-10-03 16:03] VITALS: BP 163/76
[2017-10-03 23:30] VITALS: BP 158/72
[2017-10-04 07:00] VITALS: BP 148/84
[2017-10-04 07:19] LABS: BASOPHIL (%) 0.6 % (0-1); BASOPHIL COUNT 0.1 K/uL (0-0.1); EOSINOPHIL (%) 2.1 % (0-5); EOSINOPHIL COUNT 0.2 K/uL (0-0.3); HEMOGLOBIN 9.4 G/DL (12.5-16.6); IMMATURE GRANULOCYTE (%) 4.6 % (0.0-0.7); LYMPHOCYTE (%) 12.8 % (15-42); LYMPHOCYTE COUNT 1.1 K/uL (1.0-2.8); MCH 30.7 PG (29.0-34.0); MCHC 32.4 G/DL (30.0-36.0); MONOCYTE (%) 7.1 % (3-12); MONOCYTE COUNT 0.6 K/uL (0-0.8); NEUTROPHIL (%) 72.8 % (45-76); NEUTROPHIL COUNT 6.2 K/uL (1.8-6.4); PLATELET COUNT 448 K/uL (156-360); RBC DIS.WIDTH-CV 14.1 % (11.8-14.6); RBC DIS.WIDTH-SD 46.6 % (39-53); RED BLOOD COUNT 3.06 M/uL (4.00-5.50); WHITE BLOOD COUNT 8.5 K/uL (4.1-10.2)
[2017-10-04 07:20] LABS: MCV 94.8 FL (86-99)
[2017-10-04 07:32] LABS: ALBUMIN 2.7 G/DL (3.2-4.8); ALKALINE PHOSPHATASE 83 IU/L (3-129); ALT (GPT) 72 IU/L (3-49); AST (GOT) 39 IU/L (2-34); CHLORIDE 115 MEQ/L (99-109); CREATININE 0.8 MG/DL (0.6-1.3); GFR ESTIMATE (CALCULATED) > 59 mL/min/ (58.99-99999); GLUCOSE 187 mg/dL (70-99); POTASSIUM 3.2 MEQ/L (3.7-5.4); SODIUM 142 MEQ/L (136-147); TOTAL PROTEIN 5.1 G/DL (6.4-8.3); UREA NITROGEN (BUN) 12 mg/dL (9-23)
[2017-10-04 07:41] LABS: TOTAL BILIRUBIN 0.5 MG/DL (0.0-1.0)
[2017-10-04] MEDS ORDERED: Magic Mouthwash Garg MM (14:59)
[2017-10-04] MEDS ORDERED: SPIRIVA RESPIMAT4 GM IH (15:02)
[2017-10-04] MEDS ORDERED: TAMSULOSIN HCL0.4 MG PO (15:02)
[2017-10-04] MEDS ORDERED: MIRTAZAPINE15 MG PO (15:02)
[2017-10-04] MEDS ORDERED: ADVAIR HFA120 INHALA IH (15:06)
[2017-10-04] MEDS ORDERED: POTASSIUM CHLO20 ME2 PO (15:13)
== END 2017-10-04 17:31 | disposition home health service (06) | DRG 207 ==
LOC: EME 05:14 → 4WEST 08:57 → EDOF 08:57 → ENRESERV 08:58 → 4WEST 09:37 → ENRESERV 09-29 10:22 → 2EAST 09-29 18:01 → ENRESERV 09-30 11:02 → 2EAST 09-30 12:09
PROVIDERS: Emergency Medicine; Hospitalist; Internal Medicine; Internal Medicine Critical Care Medicine; Internal Medicine Pulmonary Disease; Physician Assistant; Specialist
PROC: 5A1955Z Respiratory Ventilation, Greater than 96 Consecutive Hours (ICD-10-PCS; principal; 2017-09-19)
PROC: 05HM33Z Insertion of Infusion Device into Right Internal Jugular Vein, Percutaneous Approach (ICD-10-PCS; principal; 2017-09-19)
PROC: 0BH17EZ Insertion of Endotracheal Airway into Trachea, Via Natural or Artificial Opening (ICD-10-PCS; principal; 2017-09-19)
DX: J15.6 Pneumonia due to other Gram-negative bacteria (principal); B37.7 Candidal sepsis; J96.21 Acute and chronic respiratory failure with hypoxia; G93.41 Metabolic encephalopathy; J44.0 Chronic obstructive pulmonary disease with (acute) lower respiratory infection; N17.0 Acute kidney failure with tubular necrosis; R65.21 Severe sepsis with septic shock; J44.1 Chronic obstructive pulmonary disease with (acute) exacerbation; N18.4 Chronic kidney disease, stage 4 (severe); E66.01 Morbid (severe) obesity due to excess calories; I95.9 Hypotension, unspecified; I12.9 Hypertensive chronic kidney disease with stage 1 through stage 4 chronic kidney disease, or unspecified chronic kidney disease; E11.65 Type 2 diabetes mellitus with hyperglycemia; E11.22 Type 2 diabetes mellitus with diabetic chronic kidney disease; K21.9 Gastro-esophageal reflux disease without esophagitis; E86.0 Dehydration; I25.10 Atherosclerotic heart disease of native coronary artery without angina pectoris; I27.20 Pulmonary hypertension, unspecified; J84.10 Pulmonary fibrosis, unspecified; W06.XXXA Fall from bed, initial encounter; E87.4 Mixed disorder of acid-base balance; F32.9 Major depressive disorder, single episode, unspecified; G89.4 Chronic pain syndrome; F05 Delirium due to known physiological condition; G47.00 Insomnia, unspecified; E87.1 Hypo-osmolality and hyponatremia; D50.9 Iron deficiency anemia, unspecified; G47.33 Obstructive sleep apnea (adult) (pediatric); E87.0 Hyperosmolality and hypernatremia; E83.39 Other disorders of phosphorus metabolism; E78.5 Hyperlipidemia, unspecified; N40.1 Benign prostatic hyperplasia with lower urinary tract symptoms; R32 Unspecified urinary incontinence; R33.8 Other retention of urine; E87.6 Hypokalemia; J98.11 Atelectasis; Z68.38 Body mass index [BMI] 38.0-38.9, adult; Z87.891 Personal history of nicotine dependence; Z79.4 Long term (current) use of insulin; Z95.5 Presence of coronary angioplasty implant and graft; Z90.49 Acquired absence of other specified parts of digestive tract; Z83.3 Family history of diabetes mellitus; Z87.01 Personal history of pneumonia (recurrent); Z82.49 Family history of ischemic heart disease and other diseases of the circulatory system; I25.2 Old myocardial infarction
CPT/HCPCS: 36415; 36600; 36620; 70450; 70551; 71045; 71046; 71250; 74230; 76770; 80048; 80048 91; 80053; 80061; 80069; 80076; 81003; 82043; 82140; 82570; 82607; 82746; 82803; 82948; 83036; 83540; 83605; 83735; 83880; 84100; 84300; 84443; 84466; 84478; 84484; 85025; 85027; 86803; 87040; 87070; 87077; 87086; 87106; 87186; 87205; 87449; 87493; 87502; 87641; 89190; 92526 GN; 92610 GN; 92611 GN; 93005; 93306; 94002; 94003; 94640; 94640 76; 94644; 94660; 94760; 94799; 95819; 97530 GO; 97530 GP; 99202; 99281; 99285; C1751; C1752; J0360; J0692; J0696; J1200; J1644; J1815; J1940; J2250; J2405; J2543; J2704; J3010; J3370; J3486; J7030; J7050; J7070; J7120; S0028